=== PATIENT | male | born 1980 | race Caucasian/White ===

== ENCOUNTER 2021-04-27 19:37 | Emergency (ER) | payer OTHER ==
[~2021-04-27] VITALS: Ht 182.9 cm; Wt 72.6 kg
[2021-04-27] MEDS ORDERED: XANAX 0.5 MG0.5 MG PO (20:04)
[2021-04-27] MEDS ORDERED: PERIDEX 0.12%473 M1 SWISH&SPIT (20:43)
[2021-04-27] MEDS ORDERED: TRAMADOL 50 MG50 MG PO (20:43)
[2021-04-27] MEDS ORDERED: AMOXICILLIN875 MG PO (20:43)
[2021-04-27 20:57] VITALS: BP 136/71
== END 2021-04-27 20:58 | disposition home or self-care (01) ==
LOC: ER 19:37
DX: K04.7 Periapical abscess without sinus (principal); Z79.899 Other long term (current) drug therapy; Z88.1 Allergy status to other antibiotic agents; Z87.891 Personal history of nicotine dependence